=== PATIENT | female | born 1935 | race Caucasian/White ===

== ENCOUNTER → 2016-11-14 | Outpatient (CLI) | payer OTHER, BC | LOC: CIMAGING 11:08 | PROVIDERS: ATTEND Internal Medicine Critical Care Medicine | DX: I51.7 Cardiomegaly (principal); J90 Pleural effusion, not elsewhere classified; R91.1 Solitary pulmonary nodule | CPT/HCPCS: 71250-PO ==

== ENCOUNTER → 2017-03-20 | Outpatient (CLI) | payer OTHER, BC | LOC: CIMAGING 11:01 | PROVIDERS: ATTEND Internal Medicine Critical Care Medicine | DX: J44.9 Chronic obstructive pulmonary disease, unspecified (principal); R91.1 Solitary pulmonary nodule; J90 Pleural effusion, not elsewhere classified; I51.7 Cardiomegaly; J98.11 Atelectasis | CPT/HCPCS: 71250-PO ==

== ENCOUNTER → 2017-05-29 | Outpatient (CLI) | payer OTHER, BC | LOC: CIMAGING 10:19 | PROVIDERS: ATTEND Family Medicine | DX: R91.8 Other nonspecific abnormal finding of lung field (principal); R09.02 Hypoxemia | CPT/HCPCS: 71250-PO ==

== ENCOUNTER 2017-07-05 06:49 | Day surgery (SDC) | payer OTHER, BC ==
--- NOTE | 2017-07-03 15:27 | CPEKG ---
Heart Rate: 61 RR Interval: 984 QRSD Interval: 88 QT Interval: 476 QTC Interval: 480 QRS [place]: 37 T Wave [place]: 184 EKG Severity - ABNORMAL ECG - EKG Impression: ATRIAL FIBRILLATION EKG Impression: REPOL ABNRM, PROBABLE ISCHEMIA, ANT-LAT LEADS Electronically Signed By: Hayder Lopez 03-Jul-2017 23:11:12
[2017-07-03 15:37] LABS: ANION GAP 13 mEq/L (8-16); CALCIUM 9.1 mg/dL (8.5-10.4); CARBON DIOXIDE 28 mEq/l (22-31); CHLORIDE 100 mEq/L (97-110); CREATININE 0.8 mg/dL (0.6-1.0); GLOMERULAR FILTRATION RATE > 60; GLUCOSE 99 mg/dL (70-100); POTASSIUM 3.8 mEq/L (3.5-5.2); SODIUM 141 mEq/L (134-144)
--- NOTE | 2017-07-05 07:02 | PDHPUP ---
History & Physical Update H&P update statement: This history and physical update is based on an assessment of the patient which was completed after admission or registration (within 24 hours), but prior to the surgery/procedure. H&P update: H&P reviewed & patient examined, no change in patient's condition since H&P completed
[2017-07-05] MEDS ORDERED: ceFAZolin 2 GM/SWFI 2 GM/20 ML SYR IVP ONE (07:03)
[2017-07-05] MEDS ORDERED: LR 1,000 ML IV ONE (07:04)
--- NOTE | 2017-07-05 07:07 | POSTOPPROG ---
Post Op Note Date of Operation: 07/05/17 Surgeon: Sangita Mcgraw Shredder/Granulator Operator: daina Anesthesiologist: alexandria Anesthesia: GET(General Endotracheal) Pre-op Diagnosis: R elbow lesion Post-op Diagnosis: same Indication: 82yo F with suspicious r elbow lesion Procedure: excisional biopsy R elbow Findings: ulcerated fungated R elbow lesion
[2017-07-05] MEDS ORDERED: BUPIVACAINE 0.5% 30 ML SDV ONE (07:49)
[2017-07-05] MEDS ORDERED: LIDOCAINE 1% 300 MG/30 ML SDV ONE (07:49)
[2017-07-05] MEDS ORDERED: MIDAZOLAM 2 MG/2 ML VIAL ONE (08:12)
[2017-07-05] MEDS ORDERED: MIDAZOLAM 2 MG/2 ML VIAL IVP ONE (08:18)
--- NOTE | 2017-07-05 08:20 | PDANEPAE ---
ANE Past Medical History - Cardiovascular History Hx Hypertension: Yes Hx Arrhythmias: Yes Hx Chest Pain: No Hx Coronary Artery / Peripheral Vascular Disease: Yes Hx CHF / Valvular Disease: Yes Cardiovascular History Comment: ATRIAL FIBRILLATION. PULM HTN - Pulmonary History Hx COPD: Yes Hx Oxygen in Use at Home: No Hx Sleep Apnea: No Sleep Apnea Screening Result - Last Documented: Positive Pulmonary History Comment: RT MIDDLE LOBE LESION. PULM NODULES. DAILY NON PRODUCTIVE COUGH - Neurologic History Hx Cerebrovascular Accident: Yes Hx Seizures: No Hx Dementia: No Neurologic History Comment: hx of TIA - Endocrine History Hx Diabetes: No Hypothyroid: No Hyperthyroid: No Obesity: no - Renal History Hx Renal Disorders: No - Liver History Hx Hepatic Disorders: Yes Hepatic History Comment: elevated lfts - Neurological & Psychiatric Hx Hx Neurological and Psychiatric Disorders: Yes Neurological / Psychiatric History Comment: ANXIETY - Cancer History Hx Cancer: Yes Cancer History Comment: SKIN CANCER - Congenital Disorder History Hx Congenital Disorders: No - GI History Hx Gastrointestinal Disorders: Yes Gastrointestinal History Comment: gerd. IBS - Other Health History Other Health History: DVT LT LEG. DECREASED APPETITE. POOR ENERGY - Chronic Pain History Chronic Pain: Yes (RT ELBOW) - Surgical History Prior Surgeries: SHRAVAN CATARACT. SHRAVAN TOTAL HIP. LEG STENTS AND AORTA 2016. BLEEDING ULCER. TONSILLECTOMY. APPENDECTOMY ANE Review of Systems Review of Systems: - Exercise capacity METS (RN): 2 METS ANE Patient History - Allergies Allergies/Adverse Reactions: adhesive tape Allergy (Mild, Verified 01/29/16 08:31) rips the skin - Home Medications Home Medications: Dicyclomine [Bentyl 10 MG (*)] 10 mg PO BID PRN 08/25/15 [Last Taken 07/03/17] Diltiazem HCl [Diltiazem 24Hr Cd] 120 mg PO BID 08/25/15 [Last Taken 07/05/17 05 :30] Loratadine [Claritin 10 mg] 10 mg PO PRN 08/25/15 [Last Taken 06/28/17] ALPRAZolam [Xanax 0.25 MG (*)] 0.25 mg PO HS 01/04/16 [Last Taken 07/04/17 21:00 ] Atenolol [Tenormin 50 mg (*)] 50 mg PO DAILY 01/04/16 [Last Taken 07/05/17 05:30 ] Cholecalciferol Vit D3 [Vitamin D3 2000 units tab (OTC)] 2,000 units PO DAILY@ 1230 01/04/16 [Last Taken 05/21/16] Albuterol [Proventil Inhaler HFA (*)] 1 - 2 puffs IH Q4H PRN 05/22/16 [Last Taken 07/04/17 21:00] Cholecalciferol Vit D3 [Vitamin D3 (*)] 1,000 units PO DAILY@1200 05/22/16 [ Last Taken 07/04/17 20:30] Herbals/Supplements -Info Only 1 ea PO DAILY 05/22/16 [Last Taken 06/29/17] Vit C/Vit E/Lutein/Min/Iron-3 [Ocuvite Softgel] 1 each PO DAILY@1200 05/22/16 [ Last Taken 07/03/17] Citalopram DAILY06 07/02/17 [Last Taken 07/05/17 05:30] Omeprazole DAILY06 07/02/17 [Last Taken 07/05/17 07:19] Potassium Chloride DAILY 07/02/17 [Last Taken 07/04/17 13:00] - NPO status NPO Since - Liquids (Date): 07/04/17 NPO Since - Liquids (Time): 18:00 NPO Since - Solids (Date): 07/04/17 NPO Since - Solids (Time): 18:00 - Smoking Hx Smoking Status: Heavy smoker ANE Labs/Vital Signs - Labs Result Diagrams: 07/03/17 14:15 - Vital Signs Blood Pressure: 151/76 Heart Rate: 69 Respiratory Rate: 16 O2 Sat (%): 89 Height: 157.48 cm Weight: 52.617 kg ANE Physical Exam - Airway Neck exam: decreased ROM Mallampati Score: Class 2 Mouth exam: poor dentition - Pulmonary Pulmonary: reduced air movement, inspiratory crackles - Cardiovascular Cardiovascular: irregularly irregular - ASA Status ASA Status: III
[2017-07-05] MEDS ORDERED: fentaNYL 100 MCG/2 ML INJ ONE (08:29)
[2017-07-05] MEDS ORDERED: PROPOFOL 200 MG/20 ML VIAL ONE (08:32)
--- NOTE | 2017-07-05 09:02 | POSTOPPROG ---
Post Op Note Date of Operation: 07/05/17 Surgeon: Sangita Mcgraw Farm Specialist: daina Anesthesiologist: mary Anesthesia: IV Sedation Pre-op Diagnosis: R upper arm lesion, likely malignant Post-op Diagnosis: same Indication: 82 yo with large ulcerated arm lesion Procedure: wle upper arm lesion Inf/Abcess present in the surg proc area at time of surgery?: No Depth: Superfical (Skin SQ) EBL: Minimal Specimen(s): short superior long posterior
--- NOTE | 2017-07-05 10:08 | GOP ---
[f rep st] OPERATIVE REPORT DATE OF OPERATION: 07/05/2017 SURGEON: Sangita Mcgraw MD SEO ASSOCIATE: Dyana Sales, SHANNA. ANESTHESIA: Monitored anesthesia care with IV sedation. ANESTHESIOLOGIST: Homer Smiley MD. PREOPERATIVE DIAGNOSIS: Right upper arm skin lesion likely malignant. POSTOPERATIVE DIAGNOSIS: Right upper arm skin lesion likely malignant. PROCEDURE PERFORMED: Wide local excision right upper arm lesion 4 x 3 x 1 cm to the level of fat. FINDINGS: Ulcerated lesion. SPECIMENS: Right upper arm lesion, short superior long posterior. ESTIMATED BLOOD LOSS: Less than 10 cc. INDICATIONS: Kaylin Al is an 82-year-old woman with a right upper arm lesion. She is on antic oagulation. We discussed preop biopsy versus just excising the lesion. Since she would have to go o ff her anticoagulation and be bridged with Lovenox either way, we elected to excise the lesion. DESCRIPTION OF PROCEDURE: Patient was brought into the operating room, placed supine on the table. Monitored anesthesia care with IV sedation was performed. Her right upper arm was prepped and draped in the usual sterile fashion. I infiltrated the area with 20 cc of 0.5% Marcaine mixed with 1% lido darline. I made an ellipse around the entire lesion down to the level of the fat. The lesion measured 4 x 3 x 1 cm. Hemostasis was achieved with electrocautery. I closed the deep layer with 3-0 Vicryl followed by 4-0 Monocryl. The skin was very fragile so I reinforced this with 3-0 nylon. I placed a waterproof Mepilex dressing over it. She was awakened in the operating room, transferred to PACU i n stable condition. /[id number]/MODL
[2017-07-05 10:13] VITALS: TEMP 97.5
[2017-07-05 10:17] VITALS: BP 142/75; PULSE 66; RESP 14; O2SAT 91
== END 2017-07-05 10:18 | disposition home or self-care (01) ==
LOC: FSGY 06:49
PROVIDERS: ATTEND Surgery
PROC: 0HBBXZZ Excision of Right Upper Arm Skin, External Approach (ICD-10-PCS; principal; 2017-07-05 08:30)
DX: C44.622 Squamous cell carcinoma of skin of right upper limb, including shoulder (principal)
CPT/HCPCS: J2250; J2704; J3010

== ENCOUNTER → 2017-08-20 | Outpatient (CLI) | payer OTHER, BC ==
[~2017-08-20] MED LIST: IOPAMIDOL (ISOVUE-370) 150 ML BTL IV ONE
== END ==
LOC: CIMAGING 10:10
PROVIDERS: ATTEND Physician Assistant Medical
DX: I77.1 Stricture of artery (principal); I74.3 Embolism and thrombosis of arteries of the lower extremities; I70.1 Atherosclerosis of renal artery; R18.8 Other ascites; J90 Pleural effusion, not elsewhere classified; I51.7 Cardiomegaly
CPT/HCPCS: 75635; Q9967

== ENCOUNTER 2017-09-22 07:18 | Emergency (ER) | payer OTHER, BC ==
[2017-09-22 07:35] VITALS: BP 137/60; PULSE 63; RESP 18; TEMP 97.9; O2SAT 91
[2017-09-22] MEDS ORDERED: LET GEL TOPICAL 1 EA SYR TP ONE (07:35)
--- NOTE | 2017-09-22 08:05 | EDPHY ---
H & P Time Seen by Provider: 09/22/17 07:30 HPI/ROS: This patient was brought in by her after fall that resulted in a skin tear to her leg. The explain that she was transitioning from her wheelchair to a recliner when her hand slipped off of the recliner arm rested she tumbled, causing her to scrape her right leg against the metal edge of the wheelchair causing a skin tear shortly prior to arrival. The patient's applied a dressing at home and wrap it with an Anthony wrap and brought her in for evaluation. She reports mild to moderate pain at the site of the skin tear but denies any other injuries from the fall. ROS: HEENT: She denies any facial injuries from the fall Musculoskeletal no neck or back pain from the fall. No bony pain in the affected extremity. Pulmonary: No chest pain or shortness of breath. GI: No abdominal pain Neuro: No numbness or tingling. 5 point ROS is otherwise negative. Smoking Status: Heavy smoker Physical Exam: Physical Exam Vital signs are normal. General: No acute distress HEENT: Atraumatic. Eyes: Pupils equal and react to light. Extraocular motions are intact. Neck: Nontender Back: Nontender Lungs: No respiratory distress. No chest wall tenderness. Cardiac: Brisk capillary refill is intact throughout. Pulses are 2+ and symmetric in the affected extremity. Skin: No rash or pallor. Extremities: Atraumatic except for skin tear to the posterior right leg that is 9 cm x 3.5 cm triangle type flap laceration that is partial thickness. The existing skin flap is easily reduced back to original position. There is minimal bleeding. No underlying bony tenderness. No full-thickness injuries. Neuro: Alert and oriented x3 with no sensorimotor deficits. Constitutional: Initial Vital Signs Temperature (C) 36.6 C 09/22/17 07:32 Heart Rate 63 09/22/17 07:32 Respiratory Rate 18 09/22/17 07:32 Blood Pressure 137/60 H 09/22/17 07:32 O2 Sat (%) 91 L 09/22/17 07:32 O2 Delivery Mode Room Air Allergies/Adverse Reactions: adhesive tape Allergy (Mild, Verified 09/22/17 07:31) rips the skin codeine Allergy (Verified 09/22/17 07:32) sulfamethoxazole [From Bactrim] Allergy (Verified 09/22/17 07:32) trimethoprim [From Bactrim] Allergy (Verified 09/22/17 07:32) Home Medications: Medication Instructions Recorded Dicyclomine [Bentyl 10 MG (*)] 10 mg PO BID PRN 08/25/15 Diltiazem HCl [Diltiazem 24Hr Cd] 120 mg PO BID 08/25/15 Loratadine [Claritin 10 mg] 10 mg PO PRN 08/25/15 ALPRAZolam [Xanax 0.25 MG (*)] 0.25 mg PO HS 01/04/16 Atenolol [Tenormin 50 mg (*)] 50 mg PO DAILY 01/04/16 Cholecalciferol Vit D3 [Vitamin D3 2,000 units PO DAILY@1230 01/04/16 2000 units tab (OTC)] Acetaminophen [Tylenol 325mg (*)] 650 mg PO Q4 PRN #0 tab 01/20/16 Apixaban [Eliquis] 2.5 mg PO BID #0 tab 02/02/16 Albuterol [Proventil Inhaler HFA 1 - 2 puffs IH Q4H PRN 05/22/16 (*)] Cholecalciferol Vit D3 [Vitamin D3 1,000 units PO DAILY@1200 05/22/16 (*)] Herbals/Supplements -Info Only 1 ea PO DAILY 05/22/16 Vit C/Vit E/Lutein/Min/[place]-3 1 each PO DAILY@1200 05/22/16 [Ocuvite Softgel] Furosemide [Lasix 20 MG (*)] 20 mg PO DAILY #30 tab 05/24/16 Tiotropium Inhaler [Spiriva 18 mcg IH DAILY #1 mdi 05/24/16 Handihaler] guaiFENesin [Mucinex 600 MG (*)] 1,200 mg PO BID #60 tab.er 05/24/16 Citalopram DAILY06 07/02/17 Omeprazole DAILY06 07/02/17 Potassium Chloride DAILY 07/02/17 MDM/Departure - MDM Medications Given: Discontinued Medications Tetracaine/Epinephrine/Lidocaine (Let Gel Topical) 2 ea TP EDNOW ONE Stop: 09/22/17 07:36 Last Admin: 09/22/17 07:40 Dose: 2 ea ED Course/Re-evaluation: Let solution is applied. Wound is clean by our tech. Steri-Strips applied to the edge of the wound. Dressing is applied. We counseled patient and her regarding wound care. - Depart Disposition: Home, Routine, Self-Care Clinical Impression: Skin tear of right lower leg without complication Qualifiers: Encounter type: initial encounter Qualified Code(s): S81.811A - Laceration without foreign body, right lower leg, initial encounter Condition: Good Instructions: Skin Tear (ED) Additional Instructions: Diagnosis: Skin tear to leg Plan: Keep current dressing in place for the next 2-3 days. Tylenol for pain if needed. Call primary care physician to arrange follow-up appointment for recheck of the wound. Return if he develops significant bleeding, redness or other concerns for infection or other concerns. Referrals: Patient,NotPresent [Primary Care Provider] - As per Instructions
== END 2017-09-22 08:30 | disposition home or self-care (01) ==
LOC: CED 07:18
DX: S81.811A Laceration without foreign body, right lower leg, initial encounter (principal); F17.200 Nicotine dependence, unspecified, uncomplicated; V00.811A Fall from moving wheelchair (powered), initial encounter

== ENCOUNTER 2018-02-03 12:25 | Emergency (ER) | payer OTHER, BC ==
--- NOTE | 2018-02-03 12:37 | EDPHY ---
H & P Stated Complaint: [facility] fall - c/o L hip pain, L cp after attempted to lift pt Time Seen by Provider: 02/03/18 12:35 HPI/ROS: CHIEF COMPLAINT: Mechanical fall, left hip and leg pain HISTORY OF PRESENT ILLNESS: 82-year-old female presents to the emergency department by ambulance with left hip and leg pain. The patient was at home and she got up to go to the bathroom and thinks that her slipper caused her to fall. She was complaining of pain in her left hip. Her tried multiple times to try to get her off the ground but was unsuccessful. When her was trying to move her, the patient was complaining of some pain in her chest as well. EMS was contacted and the patient was brought to the emergency department for evaluation. She denies hitting her head or losing consciousness. She denies neck or back pain. Denies chest pain or difficulty breathing. She has a history of COPD and she is on oxygen. She has been on hospice for last 2 months for metastatic breast and lung cancer. She has been most recently weaned off of her medication. The patient had been on Xarelto which she stop taking several weeks ago. The patient did bite her tongue when she fell. REVIEW OF SYSTEMS: Constitutional: No fever, no chills. Eyes: No double or blurry vision. ENT: No sore throat. Respiratory: No cough, no shortness of breath. Cardiac: No chest pain. Gastrointestinal: No abdominal pain, vomiting or diarrhea. Genitourinary: No dysuria. Musculoskeletal: As above Skin: No rashes. Neurological: No headache. Source: Patient, Family - Personal History Tetanus Vaccine Date: less than 5 years ago - Medical/Surgical History Hx Asthma: No Hx Chronic Respiratory Disease: No Hx Diabetes: No Hx Cardiac Disease: Yes Hx Renal Disease: No Hx Cirrhosis: No Hx Alcoholism: No Hx HIV/AIDS: No Hx Splenectomy or Spleen Trauma: No Other PMH: PMH:afib,anticoaguated, hip fx, DVT, CHF, Aortic arterry stent placement and stent in each leg,. PSH: Hysterectomy, TIA - Social History Smoking Status: Heavy smoker - Physical Exam Exam: General Appearance: Alert, no distress Head: Atraumatic Eyes: Pupils equal, round, reactive ENT, Mouth: No hemotympanum, no oral trauma Neck: Nontender, trachea midline Respiratory: No chest wall tender, subcutaneous air, lungs clear bilaterally Cardiovascular: Regular rate and rhythm Abdomen: Abdomen is soft and nontender, pelvis stable Skin: No lacerations, No abrasion Back: No midline T/L/S pain Extremities: Changes consistent with stasis dermatitis noted to the lower extremities, small hematoma noted to the left anterior tib-fib area, pain in the left inguinal area. Normal range of motion of the hip. Neurological: A&Ox3, normal motor function, normal sensory exam Constitutional: Initial Vital Signs Temperature (C) 36.5 C 02/03/18 12:28 Heart Rate 93 02/03/18 12:28 Respiratory Rate 20 02/03/18 12:28 Blood Pressure 124/65 H 02/03/18 12:28 O2 Sat (%) 94 02/03/18 12:28 O2 Delivery Mode Nasal Cannula O2 (L/minute) 2 Allergies/Adverse Reactions: adhesive tape Allergy (Mild, Verified 02/03/18 12:32) rips the skin codeine Allergy (Verified 02/03/18 12:32) sulfamethoxazole [From Bactrim] Allergy (Verified 02/03/18 12:32) trimethoprim [From Bactrim] Allergy (Verified 02/03/18 12:32) Home Medications: Medication Instructions Recorded Dicyclomine [Bentyl 10 MG (*)] 10 mg PO BID PRN 08/25/15 Diltiazem HCl [Diltiazem 24Hr Cd] 120 mg PO BID 08/25/15 Loratadine [Claritin 10 mg] 10 mg PO PRN 08/25/15 ALPRAZolam [Xanax 0.25 MG (*)] 0.25 mg PO HS 01/04/16 Atenolol [Tenormin 50 mg (*)] 50 mg PO DAILY 01/04/16 Cholecalciferol Vit D3 [Vitamin D3 2,000 units PO DAILY@1230 01/04/16 2000 units tab (OTC)] Acetaminophen [Tylenol 325mg (*)] 650 mg PO Q4 PRN #0 tab 01/20/16 Apixaban [Eliquis] 2.5 mg PO BID #0 tab 02/02/16 Albuterol [Proventil Inhaler HFA 1 - 2 puffs IH Q4H PRN 05/22/16 (*)] Cholecalciferol Vit D3 [Vitamin D3 1,000 units PO DAILY@1200 05/22/16 (*)] Herbals/Supplements -Info Only 1 ea PO DAILY 05/22/16 Vit C/Vit E/Lutein/Min/[place]-3 1 each PO DAILY@1200 05/22/16 [Ocuvite Softgel] Furosemide [Lasix 20 MG (*)] 20 mg PO DAILY #30 tab 05/24/16 Tiotropium Inhaler [Spiriva 18 mcg IH DAILY #1 mdi 05/24/16 Handihaler] guaiFENesin [Mucinex 600 MG (*)] 1,200 mg PO BID #60 tab.er 05/24/16 Citalopram DAILY06 07/02/17 Omeprazole DAILY06 07/02/17 Potassium Chloride DAILY 07/02/17 Medical Decision Making - Diagnostics EKG Interpretation: EKG: Complete interpretation has been separately recorded in the [facility] archive. Summary impression: Atrial fibrillation, rate 97 Imaging Results: Imaging Impressions Chest X-Ray 02/03/18 12:35 Impression: 1. No acute posttraumatic abnormality identified 2. Progressively enlarging right upper lobe tumor. 2. Left Tibia-Fibula, 3 views History: Pain post fall Findings: No fracture or malalignment is identified. There is leg soft tissue edema. There is atherosclerotic vascular calcification. Impression: Soft tissue swelling. No fracture. 3. Left Hip, 3 views History: Pain post fall Comparison: September 13, 2017 Findings: There is an acute left ischial fracture. I suspect there is a subtle oblique mid left superior pubic ramus fracture. The patient has bilateral total hip replacements, both of which are in stable anatomic alignment. There is no evidence for a fracture of the left femoral shaft. There is chronic bilateral atherosclerotic vascular calcification. The SI joints and pubic symphysis remain normally aligned. An aortic biiliac stent graft remains. Impression: Left pelvic ring fractures. Intact hip replacements. Hip X-Ray 02/03/18 12:36 Impression: 1. No acute posttraumatic abnormality identified 2. Progressively enlarging right upper lobe tumor. 2. Left Tibia-Fibula, 3 views History: Pain post fall Findings: No fracture or malalignment is identified. There is leg soft tissue edema. There is atherosclerotic vascular calcification. Impression: Soft tissue swelling. No fracture. 3. Left Hip, 3 views History: Pain post fall Comparison: September 13, 2017 Findings: There is an acute left ischial fracture. I suspect there is a subtle oblique mid left superior pubic ramus fracture. The patient has bilateral total hip replacements, both of which are in stable anatomic alignment. There is no evidence for a fracture of the left femoral shaft. There is chronic bilateral atherosclerotic vascular calcification. The SI joints and pubic symphysis remain normally aligned. An aortic biiliac stent graft remains. Impression: Left pelvic ring fractures. Intact hip replacements. Tibia/Fibula X-Ray 02/03/18 12:40 Impression: 1. No acute posttraumatic abnormality identified 2. Progressively enlarging right upper lobe tumor. 2. Left Tibia-Fibula, 3 views History: Pain post fall Findings: No fracture or malalignment is identified. There is leg soft tissue edema. There is atherosclerotic vascular calcification. Impression: Soft tissue swelling. No fracture. 3. Left Hip, 3 views History: Pain post fall Comparison: September 13, 2017 Findings: There is an acute left ischial fracture. I suspect there is a subtle oblique mid left superior pubic ramus fracture. The patient has bilateral total hip replacements, both of which are in stable anatomic alignment. There is no evidence for a fracture of the left femoral shaft. There is chronic bilateral atherosclerotic vascular calcification. The SI joints and pubic symphysis remain normally aligned. An aortic biiliac stent graft remains. Impression: Left pelvic ring fractures. Intact hip replacements. ED Course/Re-evaluation: ED course: The patient has end-stage metastatic cancer presents to the ED after a fall at home. The patient does have a ramus fracture in the left pelvis. The patient is able to ambulate with a walker. The patient declines narcotic medications. She will manage her pain at home with Tylenol. She is scheduled to see hospice nurse this afternoon. She would like to be discharged home. She understands she can return to the emergency department at any time for uncontrolled pain. Differential Diagnosis: Differential diagnosis considered includes hip fracture, pelvic fracture, tibial fracture, rib fracture, pneumothorax Departure - Departure Disposition: Home, Routine, Self-Care Clinical Impression: Pelvic fracture, Lung cancer, Contusion of left leg Condition: Fair Referrals: Patient,NotPresent [Primary Care Provider] - As per Instructions
--- NOTE | 2018-02-03 12:43 | EDPHY ---
H & P Time Seen by Provider: 02/03/18 12:35 HPI/ROS: CHIEF COMPLAINT: Mechanical fall, left hip and leg pain HISTORY OF PRESENT ILLNESS: 82-year-old female presents to the emergency department by ambulance with left hip and leg pain. The patient was at home and she got up to go to the bathroom and thinks that her slipper caused her to fall. She was complaining of pain in her left hip. Her tried multiple times to try to get her off the ground but was unsuccessful. When her was trying to move her, the patient was complaining of some pain in her chest as well. EMS was contacted and the patient was brought to the emergency department for evaluation. She denies hitting her head or losing consciousness. She denies neck or back pain. Denies chest pain or difficulty breathing. She has a history of COPD and she is on oxygen. She has been on hospice for last 2 months for metastatic breast and lung cancer. She has been most recently weaned off of her medication. REVIEW OF SYSTEMS: Constitutional: No fever, no chills. Eyes: No double or blurry vision. ENT: No sore throat. Respiratory: No cough, no shortness of breath. Cardiac: No chest pain. Gastrointestinal: No abdominal pain, vomiting or diarrhea. Genitourinary: No dysuria. Musculoskeletal: No neck or back pain. Skin: No rashes. Neurological: No headache. Social History: Smoking Status: Heavy smoker Constitutional: Initial Vital Signs Temperature (C) 36.5 C 02/03/18 12:28 Heart Rate 93 02/03/18 12:28 Respiratory Rate 20 02/03/18 12:28 Blood Pressure 124/65 H 02/03/18 12:28 O2 Sat (%) 94 02/03/18 12:28 O2 Delivery Mode Nasal Cannula O2 (L/minute) 2 Allergies/Adverse Reactions: adhesive tape Allergy (Mild, Verified 02/03/18 12:32) rips the skin codeine Allergy (Verified 02/03/18 12:32) sulfamethoxazole [From Bactrim] Allergy (Verified 02/03/18 12:32) trimethoprim [From Bactrim] Allergy (Verified 02/03/18 12:32) Home Medications: Medication Instructions Recorded Dicyclomine [Bentyl 10 MG (*)] 10 mg PO BID PRN 08/25/15 Diltiazem HCl [Diltiazem 24Hr Cd] 120 mg PO BID 08/25/15 Loratadine [Claritin 10 mg] 10 mg PO PRN 08/25/15 ALPRAZolam [Xanax 0.25 MG (*)] 0.25 mg PO HS 01/04/16 Atenolol [Tenormin 50 mg (*)] 50 mg PO DAILY 01/04/16 Cholecalciferol Vit D3 [Vitamin D3 2,000 units PO DAILY@1230 01/04/16 2000 units tab (OTC)] Acetaminophen [Tylenol 325mg (*)] 650 mg PO Q4 PRN #0 tab 01/20/16 Apixaban [Eliquis] 2.5 mg PO BID #0 tab 02/02/16 Albuterol [Proventil Inhaler HFA 1 - 2 puffs IH Q4H PRN 05/22/16 (*)] Cholecalciferol Vit D3 [Vitamin D3 1,000 units PO DAILY@1200 05/22/16 (*)] Herbals/Supplements -Info Only 1 ea PO DAILY 05/22/16 Vit C/Vit E/Lutein/Min/[place]-3 1 each PO DAILY@1200 05/22/16 [Ocuvite Softgel] Furosemide [Lasix 20 MG (*)] 20 mg PO DAILY #30 tab 05/24/16 Tiotropium Inhaler [Spiriva 18 mcg IH DAILY #1 mdi 05/24/16 Handihaler] guaiFENesin [Mucinex 600 MG (*)] 1,200 mg PO BID #60 tab.er 05/24/16 Citalopram DAILY06 07/02/17 Omeprazole DAILY06 07/02/17 Potassium Chloride DAILY 07/02/17 Departure - Departure Referrals: Patient,NotPresent [Primary Care Provider] - As per Instructions
--- NOTE | 2018-02-03 13:13 | CPEKG ---
Heart Rate: 97 RR Interval: 619 QRSD Interval: 82 QT Interval: 404 QTC Interval: 513 QRS [place]: 45 T Wave [place]: 192 EKG Severity - ABNORMAL ECG - EKG Impression: ATRIAL FIBRILLATION, V-RATE 81-115 EKG Impression: VENTRICULAR PREMATURE COMPLEX EKG Impression: LVH W/ REPOL ABNORMALITIES, POSSIBLE ISCHEMIA EKG Impression: PROLONGED QT INTERVAL Electronically Signed By: Deandre Franks 03-Feb-2018 13:57:09
[2018-02-03 14:05] LABS: PLATELET COUNT 160 10^3/uL (150-400)
[2018-02-03 14:12] VITALS: BP 146/76
[2018-02-03 14:25] LABS: INR 1.06 (0.83-1.16)
== END 2018-02-03 14:12 | disposition home or self-care (01) ==
LOC: EDUNIT#
DX: S32.810A Multiple fractures of pelvis with stable disruption of pelvic ring, initial encounter for closed fracture (principal); C34.90 Malignant neoplasm of unspecified part of unspecified bronchus or lung; S80.12XA Contusion of left lower leg, initial encounter; I50.9 Heart failure, unspecified; F17.200 Nicotine dependence, unspecified, uncomplicated; Z95.5 Presence of coronary angioplasty implant and graft; W01.0XXA Fall on same level from slipping, tripping and stumbling without subsequent striking against object, initial encounter; Y92.009 Unspecified place in unspecified non-institutional (private) residence as the place of occurrence of the external cause; Y99.8 Other external cause status; Y93.89 Activity, other specified